=== PATIENT | female | born 1955 | race Caucasian/White ===

== ENCOUNTER 2024-09-20 22:23 | Emergency (ER) | payer MEDICARE, BC ==
[~2024-09-20] VITALS: Ht 160 cm; Wt 56.6 kg
[2024-09-20] MEDS: acetaminophen 325mg tablet PO ONE (23:12)
[2024-09-20 23:42] VITALS: BP 165/90; PULSE 65; RESP 18; TEMP 98.6; O2SAT 99
== END 2024-09-20 23:43 | disposition home or self-care (01) ==
LOC: ER 22:24
DX: S62.627A Displaced fracture of middle phalanx of left little finger, initial encounter for closed fracture (principal); S63.502A Unspecified sprain of left wrist, initial encounter; W19.XXXA Unspecified fall, initial encounter; Y93.89 Activity, other specified; Y92.89 Other specified places as the place of occurrence of the external cause; Y99.8 Other external cause status
CPT/HCPCS: 29130; 73110; 73130; 99284; A6449